=== PATIENT | female | born 1975 | race Caucasian/White ===

== ENCOUNTER 2021-03-24 14:27 | Emergency (ER) | payer OTHER ==
[2021-03-24] MEDS ORDERED: Ibuprofen 200 MG TAB ONE ×2 (15:21→15:27)
== END 2021-03-24 15:50 | disposition home or self-care (01) ==
LOC: NAV ERS 14:27
DX: S83.92XA Sprain of unspecified site of left knee, initial encounter (principal); X58.XXXA Exposure to other specified factors, initial encounter